=== PATIENT | male | born 1930 | race Caucasian/White ===

== ENCOUNTER 2016-05-30 13:22 | Inpatient (IN) | payer MEDICARE, BC ==
[~2016-05-30] VITALS: Ht 172.7 cm; Wt 107.5 kg
[~2016-05-30 13:22] MED LIST: ALLOPURINOL300 MG PO; BAYER LOW81 MG OR; BUMETANIDE1 MG PO; DILANTIN100 MG PO; DIOVAN320 MG PO; KLOR-CON 1010 ME1 PO; LORTAB 5 PO; MAREPA1000 MG OR; MULTIVITAMI1 OR; NAPROSYN500 MG; PLAVIX75 MG PO; PROTONIX40 M2 PO; SIMVASTATIN40 MG PO; TEMAZEPAM15 MG PO; TENORMIN PO; TRAMADOL HCL50 MG PO
[2016-05-30] MEDS ORDERED: SPIRONOLACTONE25 MG PO (13:37)
[2016-05-30] MEDS ORDERED: ALLOPURINOL100 MG PO (13:37)
[2016-05-30] MEDS ORDERED: LASIX 20 MG TAB20 MG PO (13:39)
[2016-05-30] MEDS ORDERED: PERCOCET 10/31 COMBO PO (13:39)
[2016-05-30] MEDS ORDERED: VITAMIN B-12500 MCG PO (13:40)
[2016-05-30] MEDS ORDERED: VITAMIN D2000 UNI2 PO (13:41)
[2016-05-30 16:00] VITALS: BP 145/72
[2016-05-30 17:03] LABS: URINE BILIRUBIN - DIPSTICK NEGATIVE (NEGATIVE); URINE BLOOD DIPSTICK NEGATIVE (NEGATIVE); URINE CLARITY CLEAR; URINE COLOR YELLOW; URINE GLUCOSE - DIPSTICK NEGATIVE (NEGATIVE); URINE KETONE NEGATIVE (NEGATIVE); URINE LEUK ESTERASE NEGATIVE (NEGATIVE); URINE NITRITE - DIPSTICK NEGATIVE (Negative); URINE PROTEIN - DIPSTICK NEGATIVE (NEG-TRACE); URINE SPECIFIC GRAVITY 1.015; URINE UROBILINOGEN - DIPSTICK 0.2 E.U./dL (0.2)
[2016-05-30 19:05] VITALS: BP 137/68
[2016-05-31] VITALS (7 sets, daily range): BP systolic 121–161; BP diastolic 45–77
[2016-05-31 05:29] LABS: HEMATOCRIT 40.3 % (39.0-50.0); HEMOGLOBIN 13.6 g/dl (14.0-18.0); IMMATURE GRANULOCYTES 0.4 % (0.0-1.0); MEAN CELL VOLUME 98.1 fL CALC (80.0-100.0); MEAN CORPUSCULAR HGB 33.1 pG CALC (26.0-32.0); MEAN CORPUSCULAR HGB CONC 33.7 g/L CALC (32.0-36.0); NEUT# 5.82 thou/uL (1.82-7.42); RED BLOOD COUNT 4.11 mill/uL (4.70-6.10); RED CELL DISTRI WIDTH 14.5 % (11.5-15.5)
[2016-05-31 05:38] LABS: ALBUMIN 3.4 g/dL (3.2-5.0); ALKALINE PHOSPHATASE 64 u/l (38-126); ANION GAP 16 (6-22 (CALC)); BILIRUBIN, TOTAL 0.5 mg/dL (0.0-1.4); BUN 32 mg/dL (8-23); BUN/CREATININE RATIO 30 (12-20 (CALC)); CALCIUM 8.8 mg/dL (8.4-10.2); CARBON DIOXIDE 24 mmol/l (22-30); CHLORIDE 106 mmol/l (95-108); CREATININE 1.1 mg/dL (0.7-1.3); GFR > 60 ML/MIN (>=60 (CALC)); GFR FOR AFR.AMER. > 60 ML/MIN (>=60 (CALC)); GLUCOSE 114 mg/dL (82-115); POTASSIUM 3.9 mmol/l (3.5-5.1); SGOT/AST 27 u/l (19-48); SGPT/ALT 30 u/l (11-66); SODIUM 142 mmol/l (137-146); TOTAL PROTEIN 6.5 g/dL (6.3-8.2)
[2016-06-01 04:27] VITALS: BP 145/71
[2016-06-01 05:34] LABS: HEMATOCRIT 40.3 % (39.0-50.0); HEMOGLOBIN 13.8 g/dl (14.0-18.0); IMMATURE GRANULOCYTES 0.4 % (0.0-1.0); MEAN CELL VOLUME 96.2 fL CALC (80.0-100.0); MEAN CORPUSCULAR HGB 32.9 pG CALC (26.0-32.0); MEAN CORPUSCULAR HGB CONC 34.2 g/L CALC (32.0-36.0); NEUT# 4.68 thou/uL (1.82-7.42); RED BLOOD COUNT 4.19 mill/uL (4.70-6.10); RED CELL DISTRI WIDTH 14.3 % (11.5-15.5)
[2016-06-01 06:10] LABS: ANION GAP 15 (6-22 (CALC)); BUN 29 mg/dL (8-23); BUN/CREATININE RATIO 31 (12-20 (CALC)); CALCIUM 9.1 mg/dL (8.4-10.2); CARBON DIOXIDE 25 mmol/l (22-30); CHLORIDE 107 mmol/l (95-108); CREATININE 0.9 mg/dL (0.7-1.3); GFR > 60 ML/MIN (>=60 (CALC)); GFR FOR AFR.AMER. > 60 ML/MIN (>=60 (CALC)); GLUCOSE 96 mg/dL (82-115); POTASSIUM 3.9 mmol/l (3.5-5.1); SODIUM 142 mmol/l (137-146)
[2016-06-01 07:55] VITALS: BP 183/75
[2016-06-01 11:09] VITALS: BP 127/56
[2016-06-01] MEDS ORDERED: PERCOCET 10/31 COMBO PO (11:51)
[2016-06-03] MEDS ORDERED: TRAMADOL HCL50 MG PO (12:26)
== END 2016-06-01 12:45 | disposition home or self-care (01) | DRG 556 ==
LOC: ENPENDDIS → ED 13:22 → ED-I 15:50 → ED 15:58 → MS2 15:59
PROVIDERS: Internal Medicine; ADMIT Internal Medicine; ATTEND Internal Medicine
DX: M25.552 Pain in left hip (principal); G40.909 Epilepsy, unspecified, not intractable, without status epilepticus; I10 Essential (primary) hypertension; G89.11 Acute pain due to trauma; I25.10 Atherosclerotic heart disease of native coronary artery without angina pectoris; M10.9 Gout, unspecified; K21.9 Gastro-esophageal reflux disease without esophagitis; W19.XXXA Unspecified fall, initial encounter

== ENCOUNTER 2016-06-11 06:41 | Day surgery (SDC) | payer MEDICARE, BC ==
[~2016-06-11] VITALS: Ht 172.7 cm; Wt 106.6 kg
[~2016-06-11 06:41] MED LIST changes: +ALLOPURINOL100 MG PO; +LASIX 20 MG TAB20 MG PO; +PERCOCET 10/31 COMBO PO; +SPIRONOLACTONE25 MG PO; +VITAMIN B-12500 MCG PO; +VITAMIN D2000 UNI2 PO
[2016-06-11 14:00] VITALS: BP 205/99
== END 2016-06-11 09:30 | disposition home or self-care (01) ==
LOC: ORM 06:41
PROVIDERS: ATTEND Anesthesiology Pain Medicine
PROC: 3E0U33Z Introduction of Anti-inflammatory into Joints, Percutaneous Approach (ICD-10-PCS; principal; 2016-06-11)
PROC: 3E0U3BZ Introduction of Anesthetic Agent into Joints, Percutaneous Approach (ICD-10-PCS; 2016-06-11)
DX: M46.1 Sacroiliitis, not elsewhere classified (principal); M46.06 Spinal enthesopathy, lumbar region

== ENCOUNTER 2016-06-25 06:24 | Day surgery (SDC) | payer MEDICARE, BC ==
[2016-06-25 08:35] VITALS: BP 154/70
== END 2016-06-25 08:50 | disposition home or self-care (01) ==
LOC: ORM 06:24
PROVIDERS: ATTEND Anesthesiology Pain Medicine
PROC: 3E0T33Z Introduction of Anti-inflammatory into Peripheral Nerves and Plexi, Percutaneous Approach (ICD-10-PCS; principal; 2016-06-25)
PROC: 3E0T3BZ Introduction of Anesthetic Agent into Peripheral Nerves and Plexi, Percutaneous Approach (ICD-10-PCS; 2016-06-25)
PROC: 3E0T33Z Introduction of Anti-inflammatory into Peripheral Nerves and Plexi, Percutaneous Approach (ICD-10-PCS; 2016-06-25)
PROC: 3E0T3BZ Introduction of Anesthetic Agent into Peripheral Nerves and Plexi, Percutaneous Approach (ICD-10-PCS; 2016-06-25)
PROC: 3E0T33Z Introduction of Anti-inflammatory into Peripheral Nerves and Plexi, Percutaneous Approach (ICD-10-PCS; 2016-06-25)
PROC: 3E0T3BZ Introduction of Anesthetic Agent into Peripheral Nerves and Plexi, Percutaneous Approach (ICD-10-PCS; 2016-06-25)
DX: M46.1 Sacroiliitis, not elsewhere classified (principal)

== ENCOUNTER 2016-07-16 06:01 | Day surgery (SDC) | payer MEDICARE, BC ==
[~2016-07-16] VITALS: Ht 172.7 cm; Wt 106.6 kg
[2016-07-16 07:45] VITALS: BP 169/75
== END 2016-07-16 08:26 | disposition home or self-care (01) ==
LOC: ORM 06:01
PROVIDERS: ATTEND Anesthesiology Pain Medicine
PROC: 3E0T3TZ Introduction of Destructive Agent into Peripheral Nerves and Plexi, Percutaneous Approach (ICD-10-PCS; principal; 2016-07-16)
DX: M54.5 Low back pain (principal); M46.1 Sacroiliitis, not elsewhere classified

== ENCOUNTER 2016-07-30 05:59 | Day surgery (SDC) | payer MEDICARE, BC ==
[~2016-07-30] VITALS: Ht 172.7 cm; Wt 106.6 kg
[2016-07-30 08:50] VITALS: BP 162/75
== END 2016-07-30 08:30 | disposition home or self-care (01) ==
LOC: ORM 05:59
PROVIDERS: ATTEND Anesthesiology Pain Medicine
PROC: 3E0T3TZ Introduction of Destructive Agent into Peripheral Nerves and Plexi, Percutaneous Approach (ICD-10-PCS; principal; 2016-07-30)
DX: M54.5 Low back pain (principal); M47.817 Spondylosis without myelopathy or radiculopathy, lumbosacral region

== ENCOUNTER 2016-11-05 21:43 | Emergency (ER) | payer MEDICARE, BC ==
[~2016-11-05] VITALS: Ht 172.7 cm; Wt 110.0 kg
[2016-11-06] MEDS ORDERED: PERCOCET 5/325M1 TAB PO (04:56)
[2016-11-06 05:45] VITALS: BP 170/60
== END 2016-11-06 05:45 | disposition home or self-care (01) ==
LOC: ED 21:43
DX: M25.562 Pain in left knee (principal); M25.561 Pain in right knee; I10 Essential (primary) hypertension; E78.00 Pure hypercholesterolemia, unspecified; I25.10 Atherosclerotic heart disease of native coronary artery without angina pectoris; K21.9 Gastro-esophageal reflux disease without esophagitis; G40.909 Epilepsy, unspecified, not intractable, without status epilepticus

== ENCOUNTER 2017-01-20 07:43 | Day surgery (SDC) | payer MEDICARE, BC ==
[~2017-01-20] VITALS: Ht 177.8 cm; Wt 106.6 kg
[~2017-01-20 07:43] MED LIST changes: +LASIX 40 MG TAB40 MG PO; +LASIX 80 MG TAB80 M1 PO; +PERCOCET 5/325M1 TAB PO; +VITAMIN D2000 UNI1 PO
[2017-01-20] MEDS ORDERED: ALEVE220 M1 PO (07:57)
[2017-01-20] MEDS ORDERED: TAMSULOSIN0.4 MG PO (10:52)
[2017-01-20] MEDS ORDERED: TRAMADOL HCL50 MG PO (10:52)
[2017-01-20] MEDS ORDERED: VESICARE5 M1 PO (10:52)
[2017-01-20] MEDS ORDERED: PYRIDIUM200 MG PO (10:52)
[2017-01-20] MEDS ORDERED: LEVAQUIN500 MG PO (10:52)
[2017-01-20 13:47] VITALS: BP 123/62
== END 2017-01-20 12:24 | disposition home health service (06) ==
LOC: ORM 07:43
PROVIDERS: ATTEND Urology
PROC: 0T7D8DZ Dilation of Urethra with Intraluminal Device, Via Natural or Artificial Opening Endoscopic (ICD-10-PCS; principal; 2017-01-20)
DX: N40.1 Benign prostatic hyperplasia with lower urinary tract symptoms (principal); N39.490 Overflow incontinence; N32.89 Other specified disorders of bladder; N32.3 Diverticulum of bladder; I10 Essential (primary) hypertension; E78.5 Hyperlipidemia, unspecified; K21.9 Gastro-esophageal reflux disease without esophagitis; K62.4 Stenosis of anus and rectum
CPT/HCPCS: J1956; L8699

== ENCOUNTER 2017-01-23 09:10 | Emergency (ER) | payer MEDICARE, BC ==
[~2017-01-23] VITALS: Ht 177.8 cm; Wt 106.0 kg
[~2017-01-23 09:10] MED LIST changes: +ALEVE220 M1 PO; +LEVAQUIN500 MG PO; +PYRIDIUM200 MG PO; +TAMSULOSIN0.4 MG PO; +VESICARE5 M1 PO
[2017-01-23 11:31] LABS: URINE BILIRUBIN - DIPSTICK NEGATIVE (NEGATIVE); URINE BLOOD DIPSTICK LARGE (NEGATIVE); URINE GLUCOSE - DIPSTICK 100 mg/dL (NEGATIVE); URINE KETONE NEGATIVE (NEGATIVE); URINE LEUK ESTERASE NEGATIVE (NEGATIVE); URINE PROTEIN - DIPSTICK 100 mg/dL (NEG-TRACE); URINE SPECIFIC GRAVITY 1.015
[2017-01-23 11:32] LABS: URINE CLARITY TURBID; URINE COLOR BROWN; URINE NITRITE - DIPSTICK POSITIVE (Negative); URINE RBC 50-100 RBC/hpf (0-5); URINE WBC 20-50 WBC/hpf (0-5)
[2017-01-23 11:33] LABS: URINE AMORPH SEDIMENT MANY hpf (NONE-FER); URINE BACTERIA MANY hpf; URINE EPITHELIAL CELLS MANY EPI/hpf (0-FEW)
[2017-01-23] MEDS ORDERED: CIPROFLOXACN500 MG PO (11:49)
[2017-01-23 12:20] VITALS: BP 156/75
== END 2017-01-23 12:20 | disposition home or self-care (01) ==
LOC: ED 09:10
PROVIDERS: Emergency Medicine
PROC: 0T9B70Z Drainage of Bladder with Drainage Device, Via Natural or Artificial Opening (ICD-10-PCS; principal; 2017-01-23)
DX: R33.9 Retention of urine, unspecified (principal); N39.0 Urinary tract infection, site not specified; I10 Essential (primary) hypertension; E78.00 Pure hypercholesterolemia, unspecified; G47.30 Sleep apnea, unspecified; Z98.890 Other specified postprocedural states

== ENCOUNTER 2018-12-07 10:02 | Inpatient (IN) | payer MEDICARE, BC ==
[~2018-12-07] VITALS: Ht 177.8 cm; Wt 99.8 kg
[~2018-12-07 10:02] MED LIST changes: -ALLOPURINOL100 MG PO; +CIPROFLOXACN500 MG PO; +VITAMIN B-121000 MC3 PO; -VITAMIN B-12500 MCG PO; +VITAMIN D1000 UNIT PO; -VITAMIN D2000 UNI1 PO; +ZYLOPRIM100 MG PO
[2018-12-07 10:30] VITALS: BP 164/68
[2018-12-07 12:31] LABS: CREATININE 1.4 mg/dL (0.7-1.3); POTASSIUM 4.6 mmol/l (3.5-5.1)
[2018-12-07 12:33] LABS: HEMATOCRIT 43.1 % (39.0-50.0); HEMOGLOBIN 14.3 g/dl (14.0-18.0); IMMATURE GRANULOCYTES 0.5 % (0.0-5.0); MEAN CELL VOLUME 100.2 fL CALC (80.0-100.0); MEAN CORPUSCULAR HGB 33.3 pG CALC (26.0-32.0); MEAN CORPUSCULAR HGB CONC 33.2 g/L CALC (32.0-36.0); NEUT# 5.3 thou/uL (1.82-7.42); RED BLOOD COUNT 4.3 mill/uL (4.70-6.10); RED CELL DISTRI WIDTH 15.5 % (11.5-15.5)
[2018-12-07] MEDS ORDERED: ADULT ASPIRIN R81 MG PO (13:43)
[2018-12-07 13:51] LABS: URINE BILIRUBIN - DIPSTICK NEGATIVE (NEGATIVE); URINE BLOOD DIPSTICK TRACE-LYSED (NEGATIVE); URINE COLOR YELLOW; URINE GLUCOSE - DIPSTICK NEGATIVE (NEGATIVE); URINE KETONE NEGATIVE (NEGATIVE); URINE LEUK ESTERASE MODERATE (Negative); URINE NITRITE - DIPSTICK NEGATIVE (Negative); URINE PH 5.5 (4.5-8.0); URINE PROTEIN - DIPSTICK NEGATIVE (NEG-TRACE); URINE SPECIFIC GRAVITY 1.015; URINE UROBILINOGEN - DIPSTICK 0.2 E.U./dL (0.2)
[2018-12-07 13:52] LABS: URINE CLARITY CLEAR
[2018-12-07 13:53] LABS: URINE RBC 0-2 RBC/hpf (0-5); URINE WBC 0-2 WBC/hpf (0-5)
[2018-12-07 14:55] VITALS: BP 163/71
[2018-12-07 17:30] LABS: PHENYTOIN (DILANTIN) < 3 ug/mL (10 - 20)
[2018-12-07 17:50] VITALS: BP 187/73
[2018-12-07 18:23] VITALS: BP 158/67
[2018-12-07 18:45] VITALS: BP 168/67
[2018-12-07 23:05] VITALS: BP 170/74
[2018-12-08 01:19] VITALS: BP 154/69
[2018-12-08 03:33] VITALS: BP 143/72
[2018-12-08 05:33] LABS: ANION GAP 16 (6-22 (CALC)); BUN 36 mg/dL (8-23); BUN/CREATININE RATIO 27 (12-20 (CALC)); CARBON DIOXIDE 21 mmol/l (22-30); CHLORIDE 108 mmol/l (95-108); CREATININE 1.3 mg/dL (0.7-1.3); GFR 52 ML/MIN (>=60 (CALC)); GFR FOR AFR.AMER. > 60 ML/MIN (>=60 (CALC)); MAGNESIUM 2.1 mg/dL (1.6-2.3); POTASSIUM 4.7 mmol/l (3.5-5.1); SODIUM 141 mmol/l (137-146)
[2018-12-08 07:40] VITALS: BP 137/62
[2018-12-08 11:51] VITALS: BP 154/56
[2018-12-08 16:22] VITALS: BP 178/71
[2018-12-08 18:40] VITALS: BP 154/63
[2018-12-09] VITALS (8 sets, daily range): BP systolic 133–176; BP diastolic 51–83
[2018-12-10 04:15] VITALS: BP 155/58
[2018-12-10 07:41] VITALS: BP 172/80
[2018-12-10 10:21] LABS: HEMATOCRIT 44.6 % (39.0-50.0); HEMOGLOBIN 14.7 g/dl (14.0-18.0); IMMATURE GRANULOCYTES 0.7 % (0.0-5.0); MEAN CELL VOLUME 100.5 fL CALC (80.0-100.0); MEAN CORPUSCULAR HGB 33.1 pG CALC (26.0-32.0); NEUT# 6.35 thou/uL (1.82-7.42); RED BLOOD COUNT 4.44 mill/uL (4.70-6.10)
[2018-12-10 10:36] LABS: CREATININE 1.5 mg/dL (0.7-1.3); MAGNESIUM 2.1 mg/dL (1.6-2.3); POTASSIUM 3.8 mmol/l (3.5-5.1)
[2018-12-10 10:51] VITALS: BP 135/56
[2018-12-10 15:40] VITALS: BP 146/59
[2018-12-10 20:29] VITALS: BP 162/75
[2018-12-11 00:30] VITALS: BP 168/70
[2018-12-11 04:30] VITALS: BP 169/74
[2018-12-11 08:08] VITALS: BP 162/75
[2018-12-11 10:42] VITALS: BP 172/60
[2018-12-11 11:16] VITALS: BP 157/56
[2018-12-11] MEDS ORDERED: AMLODIPINE BESYL5 MG PO (12:53)
== END 2018-12-11 14:01 | DRG 310 ==
LOC: MS2 10:02
PROVIDERS: Nurse Practitioner Family; ADMIT Internal Medicine; ATTEND Internal Medicine
PROC: 05HC33Z Insertion of Infusion Device into Left Basilic Vein, Percutaneous Approach (ICD-10-PCS; principal; 2018-12-07)
PROC: B54NZZA Ultrasonography of Left Upper Extremity Veins, Guidance (ICD-10-PCS; 2018-12-07)
DX: R00.1 Bradycardia, unspecified (principal); T44.7X5A Adverse effect of beta-adrenoreceptor antagonists, initial encounter; I12.9 Hypertensive chronic kidney disease with stage 1 through stage 4 chronic kidney disease, or unspecified chronic kidney disease; N18.3 Chronic kidney disease, stage 3 (moderate); I25.10 Atherosclerotic heart disease of native coronary artery without angina pectoris; G40.909 Epilepsy, unspecified, not intractable, without status epilepticus; I44.0 Atrioventricular block, first degree; M10.9 Gout, unspecified; E78.5 Hyperlipidemia, unspecified; I73.9 Peripheral vascular disease, unspecified; G47.33 Obstructive sleep apnea (adult) (pediatric); M47.816 Spondylosis without myelopathy or radiculopathy, lumbar region; M15.9 Polyosteoarthritis, unspecified; Z79.82 Long term (current) use of aspirin; Z79.1 Long term (current) use of non-steroidal anti-inflammatories (NSAID); Z85.038 Personal history of other malignant neoplasm of large intestine; Z79.02 Long term (current) use of antithrombotics/antiplatelets; Z87.891 Personal history of nicotine dependence; Z95.5 Presence of coronary angioplasty implant and graft
CPT/HCPCS: G0378; G0379

== ENCOUNTER 2019-01-03 09:31 | Observation (INO) | payer MEDICARE, BC ==
[~2019-01-03] VITALS: Ht 177.8 cm; Wt 98.1 kg
[2019-01-03] VITALS (11 sets, daily range): BP systolic 85–168; BP diastolic 47–74
[~2019-01-03 09:31] MED LIST changes: +ADULT ASPIRIN R81 MG PO; +AMLODIPINE BESYL5 MG PO
[2019-01-03 10:29] LABS: HEMATOCRIT 39.9 % (39.0-50.0); HEMOGLOBIN 13.3 g/dl (14.0-18.0); IMMATURE GRANULOCYTES 0.5 % (0.0-5.0); MEAN CELL VOLUME 97.8 fL CALC (80.0-100.0); MEAN CORPUSCULAR HGB 32.6 pG CALC (26.0-32.0); MEAN CORPUSCULAR HGB CONC 33.3 g/L CALC (32.0-36.0); NEUT# 5.54 thou/uL (1.82-7.42); RED BLOOD COUNT 4.08 mill/uL (4.70-6.10); RED CELL DISTRI WIDTH 14.2 % (11.5-15.5)
[2019-01-03] MEDS ORDERED: CLOPIDOGREL75 MG PO (10:36)
[2019-01-03] MEDS ORDERED: NORVASC5 M1 PO (10:36)
[2019-01-03] MEDS ORDERED: ALLOPURINOL100 MG PO (10:36)
[2019-01-03] MEDS ORDERED: ASPIRIN81 MG PO (10:36)
[2019-01-03] MEDS ORDERED: PROTONIX40 M3 PO (10:37)
[2019-01-03] MEDS ORDERED: FUROSEMIDE20 MG PO (10:37)
[2019-01-03] MEDS ORDERED: TAMSULOSIN HCL0.4 MG PO (10:38)
[2019-01-03] MEDS ORDERED: DIOVAN160 MG PO (10:38)
[2019-01-03] MEDS ORDERED: SIMVASTATIN40 MG PO (10:38)
[2019-01-03 10:46] LABS: POTASSIUM 4.4 mmol/l (3.5-5.1)
[2019-01-03] MEDS ORDERED: PROTONIX40 M2 PO ×2 (12:00→13:57)
[2019-01-03 13:00] LABS: MAGNESIUM 2.4 mg/dL (1.6-2.3)
[2019-01-03] MEDS ORDERED: ASPIRIN 8181 MG PO (13:47)
[2019-01-03] MEDS ORDERED: D31000 UNI1 PO (13:48)
[2019-01-03] MEDS ORDERED: DILANTIN100 MG PO (13:51)
[2019-01-03] MEDS ORDERED: PAIN & FEVER325 MG PO (13:53)
[2019-01-03] MEDS ORDERED: MILK OF MAG30 ML/UDC PO (13:54)
[2019-01-03] MEDS ORDERED: B-121000 MC6 PO (13:58)
[2019-01-03] MEDS ORDERED: LASIX 40 MG TAB40 MG PO (14:00)
[2019-01-03 16:37] LABS: URINE BILIRUBIN - DIPSTICK NEGATIVE (NEGATIVE); URINE BLOOD DIPSTICK SMALL (NEGATIVE); URINE COLOR YELLOW; URINE GLUCOSE - DIPSTICK NEGATIVE (NEGATIVE); URINE KETONE NEGATIVE (NEGATIVE); URINE NITRITE - DIPSTICK NEGATIVE (Negative); URINE PROTEIN - DIPSTICK TRACE mg/dL (NEG-TRACE); URINE UROBILINOGEN - DIPSTICK 0.2 E.U./dL (0.2)
[2019-01-03 16:38] LABS: URINE LEUK ESTERASE MODERATE (NEGATIVE)
[2019-01-03 16:45] LABS: URINE BACTERIA MODERATE hpf; URINE TRANSITIONAL EPI. CELLS FEW hpf; URINE WBC TNTC WBC/hpf (0-5)
[2019-01-04] VITALS (12 sets, daily range): BP systolic 108–176; BP diastolic 58–81
[2019-01-04 05:08] LABS: HEMATOCRIT 41.4 % (39.0-50.0); HEMOGLOBIN 13.7 g/dl (14.0-18.0); MEAN CELL VOLUME 98.3 fL CALC (80.0-100.0); MEAN CORPUSCULAR HGB 32.5 pG CALC (26.0-32.0); MEAN CORPUSCULAR HGB CONC 33.1 g/L CALC (32.0-36.0); RED BLOOD COUNT 4.21 mill/uL (4.70-6.10); RED CELL DISTRI WIDTH 14.4 % (11.5-15.5)
[2019-01-04 05:27] LABS: CREATININE 1.8 mg/dL (0.7-1.3); POTASSIUM 4.7 mmol/l (3.5-5.1)
[2019-01-05 01:00] VITALS: BP 131/68
[2019-01-05 03:00] VITALS: BP 137/69
[2019-01-05 05:00] VITALS: BP 152/70
[2019-01-05 06:13] LABS: URINE BILIRUBIN - DIPSTICK NEGATIVE (NEGATIVE); URINE BLOOD DIPSTICK SMALL (NEGATIVE); URINE COLOR STRAW; URINE GLUCOSE - DIPSTICK NEGATIVE (NEGATIVE); URINE KETONE NEGATIVE (NEGATIVE); URINE LEUK ESTERASE MODERATE (NEGATIVE); URINE NITRITE - DIPSTICK NEGATIVE (Negative); URINE PROTEIN - DIPSTICK NEGATIVE (NEG-TRACE); URINE RBC 0-2 RBC/hpf (0-5); URINE UROBILINOGEN - DIPSTICK 0.2 E.U./dL (0.2)
[2019-01-05 06:14] LABS: URINE BACTERIA MODERATE hpf; URINE EPITHELIAL CELLS MODERATE EPI/hpf (0-FEW)
[2019-01-05 06:39] LABS: CREATININE 1.5 mg/dL (0.7-1.3); MAGNESIUM 2.1 mg/dL (1.6-2.3); POTASSIUM 4.4 mmol/l (3.5-5.1)
[2019-01-05 08:21] VITALS: BP 134/59
[2019-01-05 12:56] VITALS: BP 157/74
[2019-01-05] MEDS ORDERED: KEFLEX500 M1 PO (13:17)
[2019-01-05 16:16] VITALS: BP 166/79
== END 2019-01-05 17:12 ==
LOC: ED 09:31 → ED-I 11:24 → ED 11:37 → MS2 11:38 → ICU 11:38 → MS2 12:05 → ICU 12:17
PROVIDERS: Family Medicine; Internal Medicine; Nurse Practitioner Family; ADMIT Internal Medicine; ATTEND Internal Medicine
DX: G45.9 Transient cerebral ischemic attack, unspecified (principal); N17.9 Acute kidney failure, unspecified; N39.0 Urinary tract infection, site not specified; E86.0 Dehydration; I12.9 Hypertensive chronic kidney disease with stage 1 through stage 4 chronic kidney disease, or unspecified chronic kidney disease; N18.3 Chronic kidney disease, stage 3 (moderate); I25.10 Atherosclerotic heart disease of native coronary artery without angina pectoris; G40.909 Epilepsy, unspecified, not intractable, without status epilepticus; M40.209 Unspecified kyphosis, site unspecified; M19.90 Unspecified osteoarthritis, unspecified site; G47.30 Sleep apnea, unspecified; Z85.038 Personal history of other malignant neoplasm of large intestine; Z87.891 Personal history of nicotine dependence
CPT/HCPCS: G0378

== ENCOUNTER 2019-01-23 23:45 | Inpatient (IN) | payer MEDICARE, BC ==
[~2019-01-23] VITALS: Ht 177.8 cm; Wt 85.0 kg
[~2019-01-23 23:45] MED LIST changes: +ALLOPURINOL100 MG PO; +ASPIRIN 8181 MG PO; +ASPIRIN81 MG PO; +B-121000 MC6 PO; +CLOPIDOGREL75 MG PO; +D31000 UNI1 PO; +DIOVAN160 MG PO; +FUROSEMIDE20 MG PO; +KEFLEX500 M1 PO; +MILK OF MAG30 ML/UDC PO; +NORVASC5 M1 PO; +PAIN & FEVER325 MG PO; +PROTONIX40 M3 PO; +TAMSULOSIN HCL0.4 MG PO
[2019-01-24] VITALS (13 sets, daily range): BP systolic 118–148; BP diastolic 63–83
[2019-01-24 00:30] LABS: HEMATOCRIT 46.3 % (39.0-50.0); HEMOGLOBIN 14.6 g/dl (14.0-18.0); IMMATURE GRANULOCYTES 1.7 % (0.0-5.0); MEAN CELL VOLUME 103.3 fL CALC (80.0-100.0); MEAN CORPUSCULAR HGB 32.6 pG CALC (26.0-32.0); MEAN CORPUSCULAR HGB CONC 31.5 g/L CALC (32.0-36.0); NEUT# 8.22 thou/uL (1.82-7.42); RED BLOOD COUNT 4.48 mill/uL (4.70-6.10); RED CELL DISTRI WIDTH 15.5 % (11.5-15.5)
[2019-01-24 00:50] LABS: ALBUMIN 3.6 g/dL (3.2-5.0); BILIRUBIN, TOTAL 0.6 mg/dL (0.0-1.4); POTASSIUM 4.1 mmol/l (3.5-5.1); TOTAL PROTEIN 7.7 g/dL (6.3-8.2)
[2019-01-24 00:59] LABS: CREATININE 3.7 mg/dL (0.7-1.3)
[2019-01-24 01:18] LABS: PROTHROMBIN TIME 11.1 SECONDS (9.0-12.5)
[2019-01-24 01:19] LABS: INTERNATIONAL NORMALIZED RATIO 1.1 RATIO (0.7-1.3)
[2019-01-24 03:23] LABS: URINE BILIRUBIN - DIPSTICK NEGATIVE (NEGATIVE); URINE COLOR YELLOW; URINE GLUCOSE - DIPSTICK NEGATIVE (NEGATIVE); URINE KETONE NEGATIVE (NEGATIVE); URINE NITRITE - DIPSTICK NEGATIVE (Negative); URINE PROTEIN - DIPSTICK NEGATIVE (NEG-TRACE); URINE UROBILINOGEN - DIPSTICK 0.2 E.U./dL (0.2)
[2019-01-24 03:24] LABS: URINE LEUK ESTERASE SMALL (NEGATIVE)
[2019-01-24 03:25] LABS: URINE BLOOD DIPSTICK NEGATIVE (NEGATIVE)
[2019-01-24 03:29] LABS: URINE WBC >100 WBC/hpf (0-5)
[2019-01-24 03:30] LABS: URINE BACTERIA MANY hpf; URINE EPITHELIAL CELLS MODERATE EPI/hpf (0-FEW)
[2019-01-24 06:47] LABS: HEMATOCRIT 43.2 % (39.0-50.0); HEMOGLOBIN 13.5 g/dl (14.0-18.0); IMMATURE GRANULOCYTES 1.6 % (0.0-5.0); MEAN CELL VOLUME 104.1 fL CALC (80.0-100.0); MEAN CORPUSCULAR HGB 32.5 pG CALC (26.0-32.0); MEAN CORPUSCULAR HGB CONC 31.3 g/L CALC (32.0-36.0); NEUT# 6.79 thou/uL (1.82-7.42); RED BLOOD COUNT 4.15 mill/uL (4.70-6.10); RED CELL DISTRI WIDTH 15.7 % (11.5-15.5)
[2019-01-24 06:49] LABS: BILIRUBIN, TOTAL 0.6 mg/dL (0.0-1.4); CREATININE 3.2 mg/dL (0.7-1.3); POTASSIUM 3.7 mmol/l (3.5-5.1); TOTAL PROTEIN 6.6 g/dL (6.3-8.2)
[2019-01-24] MEDS ORDERED: REMERON15 MG PO (09:37)
[2019-01-24] MEDS ORDERED: ULTRAM50 M1 PO (09:42)
[2019-01-25] VITALS (13 sets, daily range): BP systolic 103–165; BP diastolic 54–89
[2019-01-25 06:35] LABS: HEMATOCRIT 41.4 % (39.0-50.0); HEMOGLOBIN 13.2 g/dl (14.0-18.0); MEAN CORPUSCULAR HGB 32.8 pG CALC (26.0-32.0); MEAN CORPUSCULAR HGB CONC 31.9 g/L CALC (32.0-36.0); RED BLOOD COUNT 4.02 mill/uL (4.70-6.10); RED CELL DISTRI WIDTH 15.3 % (11.5-15.5)
[2019-01-25 07:01] LABS: ALBUMIN 2.8 g/dL (3.2-5.0); CREATININE 2.6 mg/dL (0.7-1.3); POTASSIUM 3.8 mmol/l (3.5-5.1); TOTAL PROTEIN 6.4 g/dL (6.3-8.2)
[2019-01-25 07:33] LABS: BILIRUBIN, TOTAL 1.8 mg/dL (0.0-1.4)
[2019-01-26] VITALS (12 sets, daily range): BP systolic 121–167; BP diastolic 58–83
[2019-01-26 05:40] LABS: HEMATOCRIT 41.7 % (39.0-50.0); HEMOGLOBIN 13.6 g/dl (14.0-18.0); MEAN CELL VOLUME 100.5 fL CALC (80.0-100.0); MEAN CORPUSCULAR HGB 32.8 pG CALC (26.0-32.0); MEAN CORPUSCULAR HGB CONC 32.6 g/L CALC (32.0-36.0); RED BLOOD COUNT 4.15 mill/uL (4.70-6.10)
[2019-01-26 06:05] LABS: ALBUMIN 2.9 g/dL (3.2-5.0); CREATININE 2.3 mg/dL (0.7-1.3); POTASSIUM 3.6 mmol/l (3.5-5.1)
[2019-01-27] VITALS (12 sets, daily range): BP systolic 96–140; BP diastolic 53–80
[2019-01-27 05:37] LABS: HEMATOCRIT 40.2 % (39.0-50.0); MEAN CELL VOLUME 101.5 fL CALC (80.0-100.0); MEAN CORPUSCULAR HGB 32.8 pG CALC (26.0-32.0); MEAN CORPUSCULAR HGB CONC 32.3 g/L CALC (32.0-36.0); RED BLOOD COUNT 3.96 mill/uL (4.70-6.10); RED CELL DISTRI WIDTH 14.9 % (11.5-15.5)
[2019-01-27 06:10] LABS: CREATININE 2.2 mg/dL (0.7-1.3); POTASSIUM 3.6 mmol/l (3.5-5.1)
[2019-01-28] VITALS (9 sets, daily range): BP systolic 117–149; BP diastolic 59–94
[2019-01-28 05:34] LABS: CREATININE 2.3 mg/dL (0.7-1.3); POTASSIUM 3.3 mmol/l (3.5-5.1)
== END 2019-01-28 11:59 | disposition hospice, inpatient (51) | DRG 682 ==
LOC: ED 23:45 → ED-I 01-24 02:44 → ED 01-24 03:23 → ICU 01-24 03:24 → ED-I 01-24 03:24 → ICU 01-24 08:00
PROVIDERS: Emergency Medicine; Internal Medicine; Internal Medicine Nephrology; ADMIT Internal Medicine; ATTEND Internal Medicine
PROC: 0T9B70Z Drainage of Bladder with Drainage Device, Via Natural or Artificial Opening (ICD-10-PCS; principal; 2019-01-24)
PROC: 05H933Z Insertion of Infusion Device into Right Brachial Vein, Percutaneous Approach (ICD-10-PCS; 2019-01-25)
DX: N17.9 Acute kidney failure, unspecified (principal); E43 Unspecified severe protein-calorie malnutrition; E87.2 Acidosis; I13.0 Hypertensive heart and chronic kidney disease with heart failure and stage 1 through stage 4 chronic kidney disease, or unspecified chronic kidney disease; N39.0 Urinary tract infection, site not specified; E87.0 Hyperosmolality and hypernatremia; G45.9 Transient cerebral ischemic attack, unspecified; N18.3 Chronic kidney disease, stage 3 (moderate); I50.9 Heart failure, unspecified; I25.10 Atherosclerotic heart disease of native coronary artery without angina pectoris; G40.909 Epilepsy, unspecified, not intractable, without status epilepticus; R62.7 Adult failure to thrive; E87.8 Other disorders of electrolyte and fluid balance, not elsewhere classified; K72.90 Hepatic failure, unspecified without coma; E86.0 Dehydration; G47.30 Sleep apnea, unspecified; M19.90 Unspecified osteoarthritis, unspecified site; Z87.891 Personal history of nicotine dependence; Z85.038 Personal history of other malignant neoplasm of large intestine; Z66 Do not resuscitate; Z51.5 Encounter for palliative care; Z68.26 Body mass index [BMI] 26.0-26.9, adult; R19.7 Diarrhea, unspecified

== ENCOUNTER 2019-01-28 12:00 | Inpatient (IN) | payer OTHER ==
[~2019-01-28] VITALS: Ht 177.8 cm; Wt 85.0 kg
[~2019-01-28 12:00] MED LIST changes: +REMERON15 MG PO; +ULTRAM50 M1 PO
[2019-01-28 20:01] VITALS: BP 112/53
[2019-01-28 22:09] VITALS: BP 147/70
[2019-01-29 00:10] VITALS: BP 132/65
[2019-01-29 02:00] VITALS: BP 104/51
[2019-01-29 04:50] VITALS: BP 136/66
[2019-01-29 07:00] VITALS: BP 145/55
[2019-01-29 09:00] VITALS: BP 105/54
[2019-01-29 10:00] VITALS: BP 132/59
== END 2019-01-29 15:30 | disposition expired | DRG 951 ==
LOC: ICU 12:00
PROVIDERS: ADMIT Internal Medicine; ATTEND Internal Medicine
DX: Z51.5 Encounter for palliative care (principal); N17.9 Acute kidney failure, unspecified; I13.0 Hypertensive heart and chronic kidney disease with heart failure and stage 1 through stage 4 chronic kidney disease, or unspecified chronic kidney disease; N39.0 Urinary tract infection, site not specified; E87.2 Acidosis; N18.3 Chronic kidney disease, stage 3 (moderate); E86.0 Dehydration; I50.9 Heart failure, unspecified; I25.10 Atherosclerotic heart disease of native coronary artery without angina pectoris; G40.909 Epilepsy, unspecified, not intractable, without status epilepticus; G47.30 Sleep apnea, unspecified; M19.90 Unspecified osteoarthritis, unspecified site; Z66 Do not resuscitate; Z85.038 Personal history of other malignant neoplasm of large intestine; Z87.891 Personal history of nicotine dependence; R62.7 Adult failure to thrive
CPT/HCPCS: J2060